=== PATIENT | female | born 1935 | race Hispanic/Latino ===

== ENCOUNTER 2017-08-12 19:59 | Emergency (ER) | payer MEDICARE, BC ==
[2017-08-12 19:59] VITALS: BMI 19.3
[2017-08-12 20:09] VITALS: BP 121/73; PULSE 91; RESP 20; TEMP 97.7; O2SAT 89
--- NOTE | 2017-08-12 21:35 | ED PDOC ---
Lower Extremity Pain/Injury Time Seen by Provider: 08/12/17 20:38 Chief Complaint (Nursing): Lower Extremity Problem/Injury Chief Complaint (Provider): Bilateral leg swelling and pain History Per: Patient History/Exam Limitations: no limitations Onset/Duration Of Symptoms: Days (x 1 month) Current Symptoms Are (Timing): Still Present Additional Complaint(s): 81 year old female presents to the ED complaining of bilateral leg swelling, onset 1 month. Was admitted to a hospital in [place] 2 weeks ago for pneumonia. Patient reports bilateral leg pain started 1 week ago and is constant. She uses oxygen intermittently for her COPD. Denies any chest pain or fever. PMD: Dr. Horacio Boyd Past Medical History Reviewed: Historical Data, Nursing Documentation, Vital Signs Vital Signs: Last Vital Signs Temp 97.7 F 08/12/17 20:06 Pulse 91 H 08/12/17 20:06 Resp 20 08/12/17 20:06 BP 121/73 08/12/17 20:06 Pulse Ox 89 L 08/12/17 20:06 - Medical History PMH: COPD - Surgical History Surgical History: Denies: Pacemaker Other surgeries: nephrectomy - Family History Family History: States: No Known Family Hx - Immunization History Hx Tetanus Toxoid Vaccination: No Hx Influenza Vaccination: No Hx Pneumococcal Vaccination: No - Home Medications Home Medications: Ambulatory Orders Medication Instructions Recorded Phenazopyridine HCl [Pyridium] 200 mg PO TID #6 tablet 07/13/16 Symbicort 160-4.5 Mcg Inhaler 1 mcg IH BID 07/13/16 Cephalexin [Keflex] 500 mg PO TID #21 capsule 08/13/17 - Allergies Allergies/Adverse Reactions: Allergies Allergy/AdvReac Type Severity Reaction Status Date / Time Sulfa (Sulfonamide Allergy RASH Verified 08/12/17 20:09 Antibiotics) Review of Systems ROS Statement: Except As Marked, All Systems Reviewed And Found Negative Constitutional: Negative for: Fever Cardiovascular: Negative for: Chest Pain Musculoskeletal: Positive for: Leg Pain (bilateral), Other (bilateral leg swelling) Physical Exam - Reviewed Nursing Documentation Reviewed: Yes Vital Signs Reviewed: Yes - Physical Exam Appears: Positive for: Non-toxic, No Acute Distress Head Exam: Positive for: ATRAUMATIC, NORMOCEPHALIC Skin: Positive for: Normal Color, Warm, Dry Eye Exam: Positive for: EOMI, Normal appearance, PERRL Neck: Positive for: Normal, Painless ROM, Supple Cardiovascular/Chest: Positive for: Regular Rate, Rhythm. Negative for: Murmur Respiratory: Positive for: Normal Breath Sounds. Negative for: Respiratory Distress Gastrointestinal/Abdominal: Positive for: Normal Exam, Soft. Negative for: Tenderness Back: Positive for: Normal Inspection. Negative for: L CVA Tenderness, R CVA Tenderness, Vertebral Tenderness Extremity: Positive for: Tenderness (bilateally mild to palpation), Pedal Edema (bilateral; pitting), Other (bilateral erythema on legs) Neurologic/Psych: Positive for: Alert, Oriented. Negative for: Motor/Sensory Deficits - Laboratory Results Result Diagrams: 08/12/17 21:47 08/12/17 21:47 - ECG O2 Sat by Pulse Oximetry: 89 (RA) Pulse Ox Interpretation: Normal Medical Decision Making Medical Decision Making: Time: Impression: bilateral leg swelling Differential diagnoses: venous stasis, lymphedema, rule out DVT and CHF Initial Plan: --EKG --BNP --BMP --CBC with differentials --Duplex Lower extremities US --reevaluation Time: 21:03 Duplex Lower extremities US FINDINGS: Right deep veins: Normal color and spectral Doppler flow. Normal compressibility. No deep vein thrombosis from common femoral to popliteal vein. Right superficial veins: Unremarkable. Left deep veins: Normal color and spectral Doppler flow. Normal compressibility. No deep vein thrombosis from common femoral to popliteal vein. Left superficial veins: Unremarkable. Soft tissues: No popliteal cyst. IMPRESSION: 1. No evidence of DVT within the lower extremities. Scribe Attestation: Documented by Nora Sorto, acting as a scribe for Brad Perry MD Provider Scribe Attestation: All medical record entries made by the Scribe were at my direction and personally dictated by me. I have reviewed the chart and agree that the record accurately reflects my personal performance of the history, physical exam, medical decision making, and the department course for this patient. I have also personally directed, reviewed, and agree with the discharge instructions and disposition Disposition - Clinical Impression Clinical Impression: Leg swelling, Lymphedema - Patient ED Disposition Is Patient to be Admitted: No Counseled Patient/Family Regarding: Studies Performed, Diagnosis, Need For Followup - Disposition Referrals: Horacio Boyd MD [Family Provider] - Disposition: Routine/Home Disposition Time: 01:30 Condition: GOOD Additional Instructions: Take your medications as instructed. Follow up with your PCP in 2-3 days. Prescriptions: Cephalexin [Keflex] 500 mg PO TID #21 capsule Instructions: Leg Edema (ED)
[2017-08-12 22:02] LABS: BLOOD UREA NITROGEN 11 mg/dl (7-17); CALCIUM 8.6 mg/dL (8.4-10.2); CARBON DIOXIDE 33 mmol/L (22-30); CHLORIDE 103 mmol/L (98-107); GFR AFRICAN-AMERICAN > 60; GLUCOSE,RANDOM 113 mg/dL (65-105); POTASSIUM 3.7 MMOL/L (3.6-5.0); SODIUM 144 mmol/l (132-148)
[2017-08-12 22:04] LABS: BASO % 0.6 % (0.0-2.0); EOS # 0.3 K/uL (0.0-0.7); EOS % 4.9 % (0.0-4.0); HEMATOCRIT 40.1 % (34.0-47.0); LYMPH # 1.2 K/uL (1.0-4.3); LYMPH % 19.7 % (20.0-40.0); MEAN CELL VOLUME 101.8 fl (81.0-99.0); MEAN CORPUSCULAR HEMOGLOBIN 32.2 pg (27.0-31.0); MEAN CORPUSCULAR HGB CONC 31.6 g/dL (33.0-37.0); MEAN PLATELET VOLUME 8.4 fl (7.2-11.7); MONO # 0.7 K/uL (0.0-0.8); MONO % 11.9 % (0.0-10.0); NEUT # 3.9 K/uL (1.8-7.0); NEUT % 62.9 % (50.0-75.0); RED CELL DISTRIBUTION WIDTH 15.5 % (11.5-14.5); WHITE BLOOD COUNT 6.2 K/uL (4.8-10.8)
--- NOTE | 2017-08-12 23:09 | US ---
EXAM: US Duplex Bilateral Lower Extremity Veins CLINICAL HISTORY: 81 years old, female; Pain and signs and symptoms; Swelling of limb; Lower extremity, bilateral; Leg, lower; Additional info: Bilateral lower leg swelling and pain TECHNIQUE: Real-time ultrasound scan of the veins of the bilateral lower extremities with color Doppler flow, spectral waveform analysis and compression. COMPARISON: No relevant prior studies available. FINDINGS: Right deep veins: Normal color and spectral Doppler flow. Normal compressibility. No deep vein thrombosis from common femoral to popliteal vein. Right superficial veins: Unremarkable. Left deep veins: Normal color and spectral Doppler flow. Normal compressibility. No deep vein thrombosis from common femoral to popliteal vein. Left superficial veins: Unremarkable. Soft tissues: No popliteal cyst. IMPRESSION: 1. No evidence of DVT within the lower extremities.
--- NOTE | 2017-08-13 11:22 | CARD ---
APPROVED REPORT EKG Measurement Heart [id number] <Conclusion> Sinus rhythm baseline artefact
== END 2017-08-13 00:40 | disposition home or self-care (01) ==
LOC: H.ER 19:59
DX: I89.0 Lymphedema, not elsewhere classified (principal); M79.89 Other specified soft tissue disorders; J44.9 Chronic obstructive pulmonary disease, unspecified